=== PATIENT | female | born 1995 | race Caucasian/White ===

== ENCOUNTER 2016-12-05 18:44 | Emergency (ER) | payer OTHER ==
[~2016-12-05] VITALS: Ht 160 cm; Wt 86.2 kg
[2016-12-05 19:00] VITALS: BP 129/82
--- NOTE | 2016-12-05 19:24 | NUR ---
TO ER BED 3
[2016-12-05] MEDS ORDERED: KETOROLAC 30 MG/ML VIAL IM ONE (19:35)
[2016-12-05] MEDS ORDERED: HYDROcodone/APAP 5/325 MG 1 TAB TAB PO ONE (19:35)
--- NOTE | 2016-12-05 19:38 | NUR ---
PATIENT PRESENTS TO ED WITH fever, cough, and vomiting x2days . PT STATES her last menstrual was 10/08/16 . DENIES diarrhea; SKIN IS PINK/WARM/DRY; AAOX4 WITH EVEN AND STEADY GAIT; LUNGS CLEAR BL; HR EVEN AND REGULAR; PT DENIES ANY FEVER, CP, SOB, OR COUGH AT THIS TIME; PATIENT STATES abd PAIN OF 7/10 AT THIS TIME; VSS; PATIENT POSITIONED FOR COMFORT; HOB ELEVATED; BEDRAILS UP X2; BED DOWN. ER MD MADE AWARE OF PT STATUS. boyfriend at bedside
[2016-12-05 20:13] VITALS: BP 129/82
--- NOTE | 2016-12-05 20:13 | NUR ---
Patient discharged with v/s stable. Written and verbal after care instructions given and explained. Patient alert, oriented and verbalized understanding of instructions. Ambulatory with steady gait. All questions addressed prior to discharge. ID band removed. Patient advised to follow up with PMD. Rx of GUAIATUSSIN, TAMIFLU AND NAPROSYN given. Patient educated on indication of medication including possible reaction and side effects. Opportunity to ask questions provided and answered.
== END 2016-12-05 20:13 | disposition home or self-care (01) ==
LOC: MED 18:44
DX: J09.X2 Influenza due to identified novel influenza A virus with other respiratory manifestations (principal); J45.909 Unspecified asthma, uncomplicated
CPT/HCPCS: 36415; 71010; 81001; 87804; 96372; 99285; J1885; Q0092

== ENCOUNTER 2019-01-23 13:40 | Emergency (ER) | payer OTHER ==
[~2019-01-23] VITALS: Ht 172.7 cm; Wt 72.6 kg
[2019-01-23 14:35] VITALS: BP 117/65
--- NOTE | 2019-01-23 14:43 | NUR ---
pt triaged and sent to er lobby, urine cup given at this time
[2019-01-23 15:08] LABS: BASOPHILS % (AUTO) 0.2 % (0.0-2.0); EOSINOPHILS % (AUTO) 0.5 % (0.0-4.0); HEMATOCRIT 38.9 % (36-48); HEMOGLOBIN 12.9 g/dL (12.0-16.0); LYMPHOCYTES % (AUTO) 10.7 % (20.5-51.1); MEAN CORPUSCULAR HEMOGLOBIN 28 pg (27-31); MEAN CORPUSCULAR HGB CONC 33 g/dL (33-37); MEAN CORPUSCULAR VOLUME 83.3 fL (80-94); MONOCYTES # (AUTO) 0.3 K/uL (0.8-1.0); MONOCYTES % (AUTO) 3.5 % (1.7-9.3); NEUTROPHILS # (AUTO) 7.6 K/uL (1.8-7.7); NEUTROPHILS % (AUTO) 85.1 % (42.2-75.2); PLATELET COUNT (AUTO) 200 K/uL (140-450); RED BLOOD CELL COUNT(AUTO) 4.67 MIL/uL (4.20-5.40); RED CELL DISTRIBUTION WIDTH 13.7 % (11.6-13.7); WHITE BLOOD COUNT (AUTO) 8.9 K/uL (4.8-10.8)
--- NOTE | 2019-01-23 15:09 | NUR ---
pt ambulated to bed 12
--- NOTE | 2019-01-23 15:10 | NUR ---
BIB SELF. AAO X4. C/O ABDOMINAL PAIN 03/13, N/V/D AT 0300 TODAY. VOMITTED X 6 TODAY. NO SOB NOTED. ABDOMEN NON-DISTENDED. HOB UP. BED SIDE RAILS UP X1. ON LOW BED POSITION, LOCKED. ER MADE AWARE OF PT STATUS.
[2019-01-23 15:11] LABS: APPEARANCE,URINE CLEAR (CLEAR); BILIRUBIN,URINE NEGATIVE (NEGATIVE); BLOOD, URINE NEGATIVE (NEGATIVE); COLOR,URINE YELLOW (YELLOW); LEUKOCYTE ESTERASE ,URINE NEGATIVE (NEGATIVE); NITRITE, URINE NEGATIVE (NEGATIVE); UGLUCOSE NEGATIVE (NEGATIVE)
[2019-01-23 15:26] LABS: ANION GAP 14.9 (8-16); CARBON DIOXIDE 24.5 mmol/L (21-32); CREATININE 0.6 mg/dL (0.6-1.3); POTASSIUM 3.4 mmol/L (3.5-5.1)
[2019-01-23 15:33] LABS: ALBUMIN 3.5 g/dL (3.4-5.0)
[2019-01-23] MEDS ORDERED: ONDANSETRON 4 MG/2 ML VIAL IVP ONE (16:45)
[2019-01-23] MEDS ORDERED: NACL 0.9% 1,000 ML IV ONE (16:45)
[2019-01-23 18:23] VITALS: BP 112/62
--- NOTE | 2019-01-23 18:23 | NUR ---
Patient discharged with v/s stable. Written and verbal after care instructions given and explained. Patient alert, oriented and verbalized understanding of instructions. Ambulatory with steady gait. All questions addressed prior to discharge. ID band removed. Patient advised to follow up with PMD. Rx of Danay Gonzalez given. Patient educated on indication of medication including possible reaction and side effects. Opportunity to ask questions provided and answered.
== END 2019-01-23 18:23 | disposition home or self-care (01) ==
LOC: MED 13:40
DX: R11.2 Nausea with vomiting, unspecified (principal); R19.7 Diarrhea, unspecified; R10.9 Unspecified abdominal pain; J45.909 Unspecified asthma, uncomplicated; Z98.890 Other specified postprocedural states
CPT/HCPCS: 36415; 80053; 81003; 81025; 82150; 83690; 84703; 85025; 96361; 96374; 99283; J2405; J7030; 81002

== ENCOUNTER 2019-08-19 06:23 | Emergency (ER) | payer OTHER ==
[~2019-08-19] VITALS: Ht 160 cm; Wt 93.4 kg
[2019-08-19 06:28] VITALS: BP 113/70
--- NOTE | 2019-08-19 06:40 | NUR ---
AMBULATES TO BED 03 WITH STEADY GAIT IN UPRIGHT POSITION WITH .
--- NOTE | 2019-08-19 06:49 | NUR ---
24 Y/O FEMALE PRESENTS TO ED, C/O RIGHT EYE BURNING PAIN. PT STATES ITCHING STARTED YESTERDAY WITH MILD SWELLING ON RIGHT EYE. SYMPTOMS WORSENED THIS MORNING ALONG WITH FREQUENT TEARING. PT HAS DIFFICULTY OPENING EYELID; PAIN IS 4/10 WHEN CLOSED, 10/10 WHEN OPEN. EYES ARE PERRLA. PT STABLE. ERMD MADE AWARE. WILL CONTINUE TO MONITOR.
[2019-08-19 08:00] VITALS: BP 105/60
--- NOTE | 2019-08-19 08:00 | NUR ---
Patient discharged with v/s stable. Written and verbal after care instructions given and explained. Patient alert, oriented and verbalized understanding of instructions. Ambulatory with steady gait. All questions addressed prior to discharge. ID band removed. Patient advised to follow up with PMD. Pt educated about using warm compresses for eye and frequent hand hygiene. Rx of Erythromycin 0.5%, Doxycycline 100mg and Claritin 24 hour given. Patient educated on indication of medication including possible reaction and side effects. Opportunity to ask questions provided and answered.
== END 2019-08-19 08:00 | disposition home or self-care (01) ==
LOC: MED 06:23
DX: H10.9 Unspecified conjunctivitis (principal); J06.9 Acute upper respiratory infection, unspecified; J45.909 Unspecified asthma, uncomplicated
CPT/HCPCS: 99283

== ENCOUNTER 2019-10-07 16:21 | Emergency (ER) | payer OTHER ==
[~2019-10-07] VITALS: Ht 160 cm; Wt 94.8 kg
[2019-10-07 16:41] VITALS: BP 105/63
--- NOTE | 2019-10-07 16:46 | NUR ---
urine cup handed to pt for sample
--- NOTE | 2019-10-07 16:53 | NUR ---
Patient ambulated to bed 2. RN evaluating patient at bedside.
--- NOTE | 2019-10-07 17:08 | NUR ---
Dr. Esparza is evaluating the patient at bedside.
--- NOTE | 2019-10-07 17:21 | NUR ---
after eating dinner in a [employer] restaurant yesterday---pt felt upper lip swelling with hives throughout body.Pt awake ,alert,afebrile,ambulatory with steady gait .sce ,cbs, not in distress. awoke today with small hives and pruritus---no tongue or lip swelling noted today full clear speech pt admits to having a sore throat cough chills and subjective fever x 3 days hx--denies rx--none
[2019-10-07 17:27] VITALS: BP 105/63
--- NOTE | 2019-10-07 17:27 | NUR ---
Patient discharged with v/s stable. Written and verbal after care instructions given and explained. Patient alert, oriented and verbalized understanding of instructions. Ambulatory with steady gait. All questions addressed prior to discharge. ID band removed. Patient advised to follow up with PMD. Rx of BENADRYL,PEPCID,ALBUTEROL,PREDNISONE given. Patient educated on indication of medication including possible reaction and side effects. Opportunity to ask questions provided and answered.
== END 2019-10-07 17:27 | disposition home or self-care (01) ==
LOC: MED 16:21
DX: T78.40XA Allergy, unspecified, initial encounter (principal); X58.XXXA Exposure to other specified factors, initial encounter; R50.9 Fever, unspecified; J45.909 Unspecified asthma, uncomplicated; M79.10 Myalgia, unspecified site
CPT/HCPCS: 81025; 99283

== ENCOUNTER 2023-12-27 12:17 | Emergency (ER) | payer OTHER ==
[~2023-12-27] VITALS: Ht 160 cm; Wt 96.6 kg
[2023-12-27 12:33] VITALS: BP 99/64; PULSE 133; RESP 24; TEMP 100.2; O2SAT 98
[2023-12-27 13:11] LABS: BASOPHILS % (AUTO) 0.3 % (0.0-2.0); EOSINOPHILS % (AUTO) 0.1 % (0.0-4.0); HEMATOCRIT 35.8 % (36-48); HEMOGLOBIN 12.3 g/dL (12.0-16.0); LYMPHOCYTES # (AUTO) 0.9 K/uL (2.5-16.5); LYMPHOCYTES % (AUTO) 7.3 % (20.5-51.1); MEAN CORPUSCULAR HEMOGLOBIN 29 pg (27-31); MEAN CORPUSCULAR HGB CONC 34 g/dL (33-37); MEAN CORPUSCULAR VOLUME 82.9 fL (80-94); MONOCYTES # (AUTO) 0.4 K/uL (0.8-1.0); MONOCYTES % (AUTO) 2.9 % (1.7-9.3); NEUTROPHILS # (AUTO) 11.4 K/uL (1.8-7.7); NEUTROPHILS % (AUTO) 89.4 % (42.2-75.2); PLATELET COUNT (AUTO) 226 K/uL (140-450); RED BLOOD CELL COUNT(AUTO) 4.32 MIL/uL (4.20-5.40); RED CELL DISTRIBUTION WIDTH 14.8 % (11.6-13.7); WHITE BLOOD COUNT (AUTO) 12.8 K/uL (4.8-10.8)
[2023-12-27 13:23] LABS: APPEARANCE,URINE CLEAR (CLEAR); BILIRUBIN,URINE NEGATIVE (NEGATIVE); BLOOD, URINE 1+ (NEGATIVE); COLOR,URINE YELLOW (YELLOW); LEUKOCYTE ESTERASE ,URINE NEGATIVE (NEGATIVE); NITRITE, URINE NEGATIVE (NEGATIVE); PROTEIN,URINE NEGATIVE (NEGATIVE); UGLUCOSE NEGATIVE (NEGATIVE); UROBILINOGEN,URINE 0.2 EU/dL (0.2 - 1)
[2023-12-27 13:30] LABS: ANION GAP 13.8 (8-16); CALCIUM 8.8 mg/dL (8.5-10.1); CARBON DIOXIDE 25.8 mmol/L (21-32); CREATININE 0.7 mg/dL (0.6-1.3); POTASSIUM 3.6 mmol/L (3.5-5.1)
[2023-12-27 13:34] LABS: BACTERIA,URINE 10-30 (MOD) /HPF (None Seen); SQUAMOUS EPITHELIAL CELL,UR 4-10 (MOD) /LPF (0-3 (FEW)); WBC,URINE 0-5 /HPF (0-5)
[2023-12-27 13:36] LABS: ALBUMIN 3.5 g/dL (3.4-5.0); BILIRUBIN,DIRECT 0.1 mg/dL (0.0-0.3); TOTAL BILIRUBIN 0.8 mg/dL (0.0-1.0)
[2023-12-27 13:38] LABS: LACTIC ACID 1.2 mmol/L (0.4-2.0)
[2023-12-27] MEDS: NACL 0.9% 1,000 ML IV ONE (13:39)
[2023-12-27] MEDS: ONDANSETRON 4 MG/2 ML VIAL IVP ONE (13:41)
[2023-12-27] MEDS: KETOROLAC 30 MG/ML VIAL IVP ONE (13:44)
[2023-12-27] MEDS ORDERED: cefTRIAXone 1,000 MG VIAL ONE (13:48)
[2023-12-27] MEDS: ACETAMINOPHEN 325 MG TAB PO ONE (13:56)
[2023-12-27 14:18] LABS: FLU A ANTIGEN negative (NEGATIVE); FLU B ANTIGEN NEGATIVE (NEGATIVE)
[2023-12-27] MEDS ORDERED: NAPR-54 PO (17:41)
[2023-12-27] MEDS ORDERED: CEPH-588 PO (17:41)
[2023-12-27] MEDS ORDERED: ONDA-188 PO (17:41)
[2023-12-27 18:32] VITALS: BP 103/70; PULSE 102; RESP 15; TEMP 98; O2SAT 98
== END 2023-12-27 18:32 | disposition home or self-care (01) ==
LOC: MED 12:17
DX: N39.0 Urinary tract infection, site not specified (principal); Z20.822 Contact with and (suspected) exposure to COVID-19; R11.2 Nausea with vomiting, unspecified; J45.909 Unspecified asthma, uncomplicated
CPT/HCPCS: 36415; 71045; 76856; 80048; 80076; 81001; 81025; 83605; 83690; 85025; 87040; 87086; 87426; 87804; 96365; 96375; 99285; J0696; J1885; J2405; J7030; Q0092